=== PATIENT | female | born 1960 | race Two or more races ===

== ENCOUNTER 2025-02-24 06:06 | Inpatient (IN) | payer MEDICAID ==
[~2025-02-24] VITALS: Ht 160 cm; Wt 82.8 kg
[~2025-02-24 06:06] MED LIST: ASPI1TAB20 PO; CHOL200064 PO; CLON0.1T PO; CYCL-837 PO; ENAL1TAB48 PO; HYDR25TA5 PO; METF-372 PO; MORP30TA PO; NALO1TAB4 PO; OMEP20TA PO; SIMV10TA20 PO
[2025-02-24] MEDS: CELECOXIB 100 MG CAP ONE (06:35)
[2025-02-24] MEDS: PREGABALIN CAPSULE 75 MG CAP ONE (06:35)
[2025-02-24] MEDS: ACETAMINOPHEN IV 100 ML IV ONE (06:36)
[2025-02-24] MEDS: ceFAZolin 2 GM/D5W50ml 50 ML IV ONE (06:36)
[2025-02-24] MEDS: BUPIVACAINE HCL 50 ML ONE (06:45)
[2025-02-24] MEDS ORDERED: ONDANSETRON HCL 4 MG/2 ML VIAL ONE (06:52)
[2025-02-24] MEDS: VANCOMYCIN HCL 1000 MG VL ONE (06:52)
[2025-02-24] MEDS: TRANEXAMIC ACID 20 ML ONE (06:52)
[2025-02-24] MEDS: BUPIVACAINE 0.25% INJ 50ML VIAL ONE ×2 (06:52→08:02)
[2025-02-24] MEDS ORDERED: GLYCOPYRROLATE 0.2 MG/ML 1ML VIAL ONE (06:52)
[2025-02-24] MEDS ORDERED: LIDOCAINE 1% INJ PF 5ML AMP ONE ×2 (06:52→07:38)
[2025-02-24] MEDS ORDERED: PROPOFOL 10 MG/ML 20 ML IV ONE ×2 (06:52→08:15)
[2025-02-24] MEDS: CEFEPIME 1GM/50ML 50 ML IV ONE (06:53)
[2025-02-24] MEDS ORDERED: MORPHINE SULF PF 5 MG/10 ML VIAL ONE (06:54)
[2025-02-24] MEDS ORDERED: KETOROLAC TROMETH 30 MG/ML 1ML VIAL ONE (06:54)
[2025-02-24] MEDS ORDERED: HYDROmorphone HCL 2 MG/ML VL/or syr IV PRN ×2 (07:00→09:00)
[2025-02-24] MEDS ORDERED: NITROGLYCERIN 0.4 MG SL TAB SL PRN (07:00)
[2025-02-24] MEDS ORDERED: ONDANSETRON HCL 4 MG/2 ML VIAL IV PRN ×2 (07:00→09:00)
[2025-02-24] MEDS ORDERED: MORPHINE SULFATE INJ 2 MG/ml SYRG IV PRN (07:00)
[2025-02-24] MEDS ORDERED: DEXTROSE (50%) 50ML SYRG IV PRN (07:00)
[2025-02-24] MEDS: CELECOXIB 100 MG CAP PO ONE (07:05)
[2025-02-24] MEDS: PREGABALIN CAPSULE 75 MG CAP PO ONE (07:05)
[2025-02-24] MEDS: ACETAMINOPHEN IV 1000 MG/100ML (10MG/ML) IV ONE (07:05)
[2025-02-24] MEDS ORDERED: BUPIVACAINE/DEXTROSE MPF 0.75% 2 ML AMP IT ONE (07:10)
[2025-02-24] MEDS: ceFAZolin 1GM/50ML 50 ML IV ONE (07:30)
[2025-02-24] MEDS ORDERED: LIDOCAINE HCL 2% TOP JELLY 5ML TOP ONE (07:35)
[2025-02-24] MEDS: KETOROLAC TROMETH 30 MG/ML 1ML VIAL ONE (08:02)
[2025-02-24] MEDS: MORPHINE SULF PF 5 MG/10 ML VIAL IV ONE (08:02)
[2025-02-24 08:36] VITALS: PULSE 73; RESP 19; O2SAT 100
[2025-02-24] MEDS ORDERED: fentaNYL CITRATE 100 MCG/2 ML VL IV PRN (09:00)
[2025-02-24] MEDS ORDERED: hydrALAZINE HCL 20 MG/ML VL IV PRN (09:00)
[2025-02-24] MEDS ORDERED: FLUMAZENIL 0.1 MG/ML INJ 10ML MDV IV PRN (09:00)
[2025-02-24] MEDS ORDERED: NALOXONE HCL 0.4 MG/ML VIAL IV PRN (09:00)
[2025-02-24] MEDS: ENALAPRIL MALEATE 10 MG TAB PO SCH (10:00)
[2025-02-24] MEDS ORDERED: hydroCHLOROthiazide 25 MG TAB PO SCH (10:00)
--- NOTE | 2025-02-24 10:33 | DVH ---
CLINICAL INDICATION: sp Left TKA TECHNIQUE: 2 radiographic views of the left knee were obtained. Comparison: XR KNEE LIMITED RT on DOS: 06/04/18 FINDINGS/IMPRESSION: There is no evidence of acute fracture or dislocation. Postsurgical changes from left knee arthroplasty.
[2025-02-24] MEDS: InsuLIN REG 1unit/0.01ml Soln (100units/ml) SC SCH ×2 (11:30→21:51)
[2025-02-24 13:00] VITALS: BP 100/78; PULSE 106; RESP 19; TEMP 97.8; O2SAT 99
[2025-02-24] MEDS ORDERED: ALBUTEROL SULF 2.5 MG/0.5ML(0.5%) NEB SOLN NEB PRN (13:00)
--- NOTE | 2025-02-24 13:03 | DVHINCON2 ---
Date Seen: Feb 24, [address] MARTÍNEZ Allergies: Coded Allergies: NO KNOWN ALLERGIES (Unverified , 02/20/25) Home Meds Reported Medications Morphine Sulfate (Morphine Sulfate) 30 Mg Tab, 30 MG PO, TAB 02/20/25 Omeprazole (Gnp Omeprazole) 20 Mg Tab, 20 MG PO, TAB 02/20/25 Metformin Hydrochloride (Metformin Hcl) 1,000 Mg Tab, 1000 MG PO BID, TAB 02/20/25 Cyclobenzaprine Hcl (Cyclobenzaprine Hcl) 5 Mg Tab, 10 MG PO, TAB 02/20/25 Hctz (Hydrochlorothiazide) 25 Mg Tab, 25 MG PO DAILY, TAB 02/20/25 Aspirin (Aspir-81) 81 Mg Tab, 81 MG PO DAILY, TAB 02/20/25 Enalapril Maleate (Enalapril Maleate) 20 Mg Tab, 20 MG PO DAILY, TAB 02/20/25 Cholecalciferol (D3 2000) 2,000 Unit Cap, 2000 UNIT PO DAILY, CAP 02/20/25 Simvastatin (Simvastatin) 10 Mg Tab, 5 MG PO, TAB 02/20/25 Naloxegol Oxalate (Movantik) 25 Mg Tab, 25 MG PO, TAB 02/20/25 Clonidine Hydrochloride (Clonidine Hcl) 0.1 Mg Tab, 0.1 MG PO TID, TAB 02/20/25 Current Medications Current Medications Medications (Trade) Dose Ordered Sig/Bridget Route PRN Reason Start Time Stop Time Status Last Admin Clonidine HCl (Catapres Tablet) 0.1 mg TID PO 02/24/25 14:00 Hydrochlorothiazide (hydroCHLOROthiazide TABLET) 25 mg DAILY PO 02/24/25 10:00 Enalapril Maleate (Vasotec Tablet) 20 mg DAILY PO 02/24/25 10:00 Pravastatin Sodium (Pravachol Tablet) 20 mg HS PO 02/24/25 22:00 Pantoprazole Sodium (Protonix Tablet) 40 mg BID@0600,1700 PO 02/24/25 17:00 Oxycodone HCl (OxyCONTIN ER Tablet) 20 mg Q12HR PO 02/24/25 10:00 Lactated Ringer's 1,000 ml @ 100 mls/hr Q10H IV 02/24/25 07:00 Cefazolin Sodium 50 ml @ 50 mls/hr Q6H IV 02/24/25 12:00 02/25/25 00:59 Hydromorphone HCl (Dilaudid Injection) 1 mg Q2HP PRN IV SEVERE PAIN (7-10 PAIN SCALE) 02/24/25 07:00 Ondansetron HCl (Zofran) 4 mg Q6HP PRN IV NAUSEA / VOMITING 02/24/25 07:00 Docusate Sodium (Colace Capsule) 100 mg Q12HR PO 02/24/25 10:00 Nitroglycerin (Ntrostat Sublingual) 0.4 mg Q5MINP PRN SL FOR CHEST PAIN 02/24/25 07:00 Morphine Sulfate 2 mg Q30M PRN IV FOR CHEST PAIN 02/24/25 07:00 Diagnostic Test (Pha) (Accu-Chek Comfort Curve T) 1 strip ACHS 02/24/25 07:00 Insulin Human Regular (InsuLIN R) HS SC 02/24/25 22:00 Insulin Human Regular (InsuLIN R) AC SC 02/24/25 07:00 02/24/25 12:08 Dextrose 50 ml UD PRN IV Blood Sugar LESS THAN 60 02/24/25 07:00 Aspirin (Ecotrin Enteric Coated Tablet) 81 mg BID PO 02/25/25 10:00 Cefepime HCl 50 ml @ 12.5 mls/hr DAILY IV 02/24/25 10:00 UNV Ondansetron HCl (Zofran) 4 mg ONCE PRN IV NAUSEA / VOMITING 02/24/25 09:00 02/24/25 09:07 DC Naloxone HCl (Narcan) 0.4 mg Q10M PRN IV NARCOTIC REVERSAL 02/24/25 09:00 02/24/25 09:21 DC Flumazenil (Romazicon Injection) 0.2 mg ONCE PRN IV BENZODIAZEPINE REVERSAL 02/24/25 09:00 02/24/25 09:07 DC Hydralazine HCl (Apresoline Injection) 5 mg Q10M PRN IV SBP>160 02/24/25 09:00 02/24/25 09:51 DC Ephedrine Sulfate (ePHEDrine SULFATE) 10 mg Q10M PRN IV SBP LESS THAN 90 02/24/25 09:00 02/24/25 09:41 DC Fentanyl Citrate 25 mcg Q1HP PRN IV BREAKTHROUGH PAIN (7-10) 02/24/25 09:00 02/24/25 09:07 DC Hydromorphone HCl (Dilaudid Injection) 0.5 mg Q10M PRN IV SEVERE PAIN (7-10 PAIN SCALE) 02/24/25 09:00 02/24/25 09:41 DC Vital Signs Vital Signs Date Time Temp Pulse Resp B/P (MAP) Pulse Ox O2 Delivery O2 Flow Rate FiO2 02/24/25 10:20 59 16 149/73 (98) 54 02/24/25 08:36 Mask 7.0 02/24/25 08:36 100 02/24/25 08:36 97.5 97.5 Labs/Diagnostic Data Labs Test 02/24/25 11:50 Range/Units POC Glucose 175 H 70-106 mg/dl Assessment SEE DICTATED NOTE Plan discussed with: Patient Date of Service: Feb 24, 2025 Billing Provider: NISA ROSS MD Common Visit Codes: 82120-PPBUJDD INP/OBS CARE (HIGH) Secondary Visit Codes: 60237-IBOFH CHNG SMOKING >10MIN, 47254-EOXIREHW CARE PLAN 30 MINUTES NISA ROSS MD Feb 24, 2025 13:03
[2025-02-24] MEDS: MORPHINE SULF 30 mg ER tab PO ONE (13:27)
[2025-02-24] MEDS: DOCUSATE SOD 100 MG CAP PO SCH (13:27)
[2025-02-24] MEDS: ACCU-CHEK COMFORT CURVE STRIP VI SCH (13:29)
[2025-02-24 13:30] VITALS: BP 148/90; PULSE 57; RESP 14; TEMP 97.5; O2SAT 96
[2025-02-24] MEDS: LACTATED RINGER'S 1,000 ML IV SCH (13:30)
--- NOTE | 2025-02-24 13:36 | DVHINCON2 ---
INTERNAL MEDICINE CONSULT HISTORY OF PRESENT ILLNESS: The patient is a 64-year-old lady who was admitted after she underwent surgery on the left knee for DJD of the knee. The patient denies any significant pain. No chest pain. No shortness of breath. No nausea or vomiting. REVIEW OF SYSTEMS: Review of rest systems otherwise currently negative. PAST MEDICAL HISTORY: Significant for diabetes, hypertension, COPD, hyperlipidemia, chronic pain, and GERD. MEDICATIONS: She takes aspirin, clonidine, hydrochlorothiazide, metformin, morphine, omeprazole, simvastatin. ALLERGIES: No known drug allergies. SOCIAL HISTORY: Smokes cigarettes. Denies alcohol. Has a caregiver at home. FAMILY HISTORY: Negative. PHYSICAL EXAMINATION: GENERAL: The patient is awake and alert. VITAL SIGNS: Temperature of 97.5, pulse 65 per minute, blood pressure 115/58. SHEENT: Unremarkable. There is no JVD. No pedal edema. LUNGS: Equal bilaterally. No added sounds. CARDIOVASCULAR: S1, S2 is regular. No murmurs. ABDOMEN: Soft. There is no organomegaly. NEUROLOGIC: Nonfocal. MUSCULOSKELETAL: The left knee is currently in a dressing. ASSESSMENT AND PLAN: * Hypertension for which the patient will resume her home medications. * Diabetes mellitus. She will be placed on sliding scale insulin. * Obesity. * Tobacco abuse. The patient has been advised to quit smoking and nicotine patch will be placed. Time spent was 11 minutes. * Hyperlipidemia. * GERD. * Status post left knee surgery for DJD of the knee for which she will be placed on pain medication and receive physical therapy. * Advance care planning. The patient is a full code-Time spent was 17 minutes. MD HUE Galvan/CHIDI TID: [id number] RECEIPT: [id number] [facility]
[2025-02-24] MEDS: NICOTINE 14 MG/24HR TOPICAL PATCH TD ONE (13:57)
[2025-02-24] MEDS: ceFAZolin 1GM/50ML 50 ML IV SCH (13:57)
[2025-02-24] MEDS: HYDROmorphone HCL 2 MG/ML VL/or syr IV PRN (15:59)
[2025-02-24 17:00] VITALS: BP 144/72; PULSE 69; RESP 17; TEMP 97.7; O2SAT 99
[2025-02-24] MEDS: PANTOPRAZOLE 40 MG TAB PO SCH (17:18)
[2025-02-24 20:00] VITALS: PULSE 73
[2025-02-24 21:00] VITALS: BP 140/85; PULSE 67; RESP 17; RESP 18; TEMP 97.6; TEMP 97.7; O2SAT 96
[2025-02-24] MEDS: PRAVASTATIN SODIUM 20 MG TAB PO SCH (21:49)
[2025-02-25 01:00] VITALS: BP 129/82; PULSE 71; RESP 18; TEMP 97.7; O2SAT 93
[2025-02-25 05:00] VITALS: BP 133/75; PULSE 62; RESP 18; TEMP 97.6; O2SAT 91
[2025-02-25 07:25] LABS: Hematocrit 34.2 % (36.0-46.0); Hemoglobin 11.3 g/dL (12.2-16.2); Mean Corpuscular Hemoglobin 28.5 pg (28.0-32.0); Mean Corpuscular Volume 86.2 fL (80.0-100.0); Nucleated Red Blood Cells % 0.1 %
[2025-02-25 07:45] LABS: Alanine Aminotransferase 11 U/L (7-40); Albumin 4.0 g/dL (3.2-4.8); Alkaline Phosphatase 52 U/L (46-116); Anion Gap 7 (5-15); BUN/Creatinine Ratio 20.5 (10.0-20.0); Blood Urea Nitrogen 17 mg/dL (9-23); Calcium 9.1 mg/dL (8.7-10.4); Carbon Dioxide 28 mmol/L (20-31); Chloride 105 mmol/L (98-107); Potassium 3.8 mmol/L (3.5-5.1); Sodium 140 mmol/L (136-145); Total Protein 6.6 g/dL (5.7-8.2)
[2025-02-25 07:46] LABS: Bilirubin, Total 0.4 mg/dL (0.2-1.0); Glucose 177 mg/dL (74-106)
[2025-02-25 08:38] VITALS: BP 134/76; PULSE 79; RESP 20; TEMP 97.9; O2SAT 98
[2025-02-25] MEDS: CEFEPIME 1GM/50ML 50 ML IV SCH (09:36)
[2025-02-25] MEDS: ASPirin-EC 81 mg tab PO SCH (09:36)
[2025-02-25] MEDS: NICOTINE 14 MG/24HR TOPICAL PATCH TD SCH (09:37)
--- NOTE | 2025-02-25 11:32 | DVHPN2 ---
Progress Note Progress Note Surgery: Left total knee arthroplasty DOS: T-1 S: Reports pain currently 2-3/10. Reports no acute events over night. Denies numbness/tingling. Denies CP/SOB/palpitations. Denies F/C O: Pt asleep, resting comfortably in bed. Examination of the Left knee reveals surgical dressing CDI. Pt is able to dorsiflex and plantar flex toes and ankle (Gastroc, ant tib, peroneals). SILT over the sural, saphenous, tibial, deep and superficial peroneal nerve, medial and lateral plantar nerve distribution patterns. 2+ DP, BCR, euthermic A/P: S/p left total knee arthroplasty. The patient is doing well. Discussed with patient the importance of keeping knee straight when lying in bed and when not doing active knee flexion exercises. - Pt should continue to work with physical therapy for mobilization. Has seen PT this morning ans doing well. -Ambulation: WBAT LLE with use of FWW for balance and assistance. -DVT proph: per protocol, SCD, LEV davidson -Antibiotics: Abx to be completed per protocol -Pain Management: PO medications per medicine team. The patient will be ready to be discharged once pain is controlled and cleared by PT Plan discussed with: Patient Visit Coding Surgery Date of Service if different f: Feb 25, 2025 Billing Provider: KARMA FRIED Surgery Visit Codes: 81730 - INP CONSULT <55 MIN KARMA FRIED Feb 25, 2025 11:32
--- NOTE | 2025-02-25 12:06 | DVHDS2 ---
Discharge Summary Date of Admission Feb 24, 2025 at 06:58 Date of Discharge: Feb 25, 2025 Labs/Diagnostic Data: Laboratory Results Test 02/25/25 06:46 02/25/25 05:57 White Blood Count 9.8 10^3/uL (4.4-10.8) Red Blood Count 3.96 10^6/uL (4.0-5.20) Hemoglobin 11.3 g/dL (12.2-16.2) Hematocrit 34.2 % (36.0-46.0) Mean Corpuscular Volume 86.2 fL (80.0-100.0) Mean Corpuscular Hemoglobin 28.5 pg (28.0-32.0) Mean Corpuscular Hemoglobin Concent 33.1 g/dL (32.0-36.0) Red Cell Distribution Width 14.7 % (11.8-14.3) Platelet Count 267 10^3/uL (140-450) Mean Platelet Volume 7.2 fL (6.9-10.8) Neutrophils (%) (Auto) 84.3 % (37.0-80.0) Lymphocytes (%) (Auto) 9.3 % (10.0-50.0) Monocytes (%) (Auto) 6.3 % (0.0-12.0) Eosinophils (%) (Auto) 0.0 % (0.0-7.0) Basophils (%) (Auto) 0.1 % (0.0-2.0) Neutrophils # (Auto) 8.3 10 ^3/uL (1.6-8.6) Lymphocytes # (Auto) 0.9 10 ^3/uL (0.4-5.4) Monocytes # (Auto) 0.6 10 ^3/uL (0-1.3) Eosinophils # (Auto) 0 10 ^3/uL (0-0.8) Basophils # (Auto) 0 10 ^3/uL (0-0.2) Nucleated Red Blood Cells 0.1 % Sodium Level 140 mmol/L (136-145) Potassium Level 3.8 mmol/L (3.5-5.1) Chloride Level 105 mmol/L (98-107) Carbon Dioxide Level 28 mmol/L (20-31) Anion Gap 7 (5-15) Blood Urea Nitrogen 17 mg/dL (9-23) Creatinine 0.83 mg/dL (0.550-1.02) Glomerular Filtration Rate Calc 80 mL/min (>90) BUN/Creatinine Ratio 20.5 (10.0-20.0) Serum Glucose 177 mg/dL (74-106) Calcium Level 9.1 mg/dL (8.7-10.4) Total Bilirubin 0.4 mg/dL (0.2-1.0) Aspartate Amino Transferase (AST) 14 U/L (13-40) Alanine Aminotransferase (ALT) 11 U/L (7-40) Alkaline Phosphatase 52 U/L (46-116) Total Protein 6.6 g/dL (5.7-8.2) Albumin 4.0 g/dL (3.2-4.8) Thyroid Stimulating Hormone (TSH) 0.22 uIU/mL (0.55-4.78) POC Glucose 194 mg/dl (70-106) Other Laboratory Tests 02/25/25 06:46 Brief Hx & Hospital Course: see dictated note Condition at Discharge: Good Final Diagnosis/Problems List knee surgery Discharge Disposition: Home Discharge Instruct/Medications Diet: Consistent carbohydrate, Cardiac 2g Na,low cholest Activity: No Restrictions, As Tolerated Follow Up/Referral: fu with pcp/ortho Medications: resume home meds rest meds per ortho Scheduled Aspirin (Aspir-81), 81 MG PO DAILY, (Reported) Cholecalciferol (D3 2000), 2,000 UNIT PO DAILY, (Reported) Clonidine Hydrochloride (Clonidine Hcl), 0.1 MG PO TID, (Reported) Enalapril Maleate (Enalapril Maleate), 20 MG PO DAILY, (Reported) Hctz (Hydrochlorothiazide), 25 MG PO DAILY, (Reported) Metformin Hydrochloride (Metformin Hcl), 1,000 MG PO BID, (Reported) Miscellaneous Medications Cyclobenzaprine Hcl (Cyclobenzaprine Hcl), 10 MG PO, (Reported) Morphine Sulfate (Morphine Sulfate), 30 MG PO, (Reported) Naloxegol Oxalate (Movantik), 25 MG PO, (Reported) Omeprazole (Gnp Omeprazole), 20 MG PO, (Reported) Simvastatin (Simvastatin), 5 MG PO, (Reported) Discharge Statement: "Patient was advised to return to the ER or call 911 if any headaches, dizziness, shortness of breath, chest pain, abdominal pain, bleeding, fevers, or worsening of medical condition. Patient was counseled about treatment plan, medications, possible side effects, patientverbalized understanding. All questions were answered to the best of my ability. This discharge took greater then 30 minutes in planning, reviewing documentation, counseling the patient, and discussing with other team members." ASSESSMENT ASSESSMENT Assessment knee surgery Date of Service: Feb 25, 2025 Billing Provider: NISA ROSS MD Common Visit Codes: 53787-RFA/OBS DISCH DAY >30min NISA ROSS MD Feb 25, 2025 12:06
--- NOTE | 2025-02-25 12:38 | DVHDS ---
DATE OF DISCHARGE: 02/25/2025 HISTORY OF PRESENT ILLNESS: The patient is a 64-year-old lady who was admitted after she underwent surgery on the left knee for DJD of the knee. She has a history of diabetes, hypertension, COPD, hyperlipidemia, chronic pain and GERD. HOSPITAL COURSE: The patient did well postoperatively. The patient has been ambulating with physical therapy. Her pain is currently under control. She will be discharged home to resume her home medications as well as to be on medications as per Orthopedics and have home physical therapy. She will follow up with her primary care and Orthopedics. FINAL DIAGNOSES: * Hypertension. * Diabetes mellitus. * Obesity. * Tobacco abuse. * Hyperlipidemia. * Gastroesophageal reflux disease. * Status post left knee surgery for DJD of the knee. Time spent in discharge planning and review of plan with the patient and nursing was 38 minutes. MD HUE Galvan/PILO TID: [id number] RECEIPT: [id number]
[2025-02-25 13:53] VITALS: BP 134/76; TEMP 36.6
[2025-02-25 14:15] VITALS: BP 130/75; PULSE 69; RESP 18; TEMP 98; O2SAT 96
--- NOTE | 2025-02-27 18:25 | DVHOP2 ---
Operative Report - 2 Report Details Date: 02/24/2025 Preop Diagnosis: Left knee osteoarthritis Postop Diagnosis: as above Surgeon: Nick Parker MD Banquet Cook: Tono GARCIA Anesthesiologist: Anesthesia: Regional Implant: See implant log Consent: The patient was informed of the risks and benefits of the procedure. These include but are not limited to complications of anesthesia, postoperative infection, incomplete relief of symptoms, recurrence of symptoms, damage to blood vessels, nerves and tendons, deep venous thrombosis, pulmonary embolism and possible need for repeat surgery in the future. Estimated Blood Loss: 50 cc Name of Procedure Performed Left total knee arthroplasty using computer navigation Procedure Details Procedure Details: INDICATION: This patient has failed non-operative treatments for knee arthritis and is now indicated for a total knee replacement. Preoperatively in the waiting area as well as in the office, I had a long discussion with the patient regarding the plan, the expected outcome, the risks, benefits, and alternatives of surgery. The risks include, but are not limited to, infection (which may require future surgery and removal of implants) , bleeding (which may require a transfusion), damage to nerves, arteries, veins, tendons, muscles and other adjacent structures. Also discussed the possibilities of intraoperative fractures, implant loosening, heterotopic bone formation, and revision for variety of reasons, and medical complications etc. This was discussed at length and consent has been obtained. DESCRIPTION OF PROCEDURE: In the preoperative holding area, the consent was reviewed and the appropriate extremity was verified by the patient and marked with my initials. The patient was then transferred to the operating theatre. Appropriate anesthesia was induced. All bony prominences were well padded. A desire e out was performed verifying the side and site of surgery according to standard protocol. Preoperative antibiotics were given 10 minutes prior to tourniquet inflation. Tranexamic acid was given. A well padded thigh tourniquet was applied. The extremity was then prepped and draped in the usual sterile fashion. The extremity was exsanguinated and the tourniquet was inflated. We then made a mid-line incision, which we continued to the underlying capsular tissue. We performed a medial parapatellar arthrotomy. We periosteally exposed the proximal tibia, excised the anterior fat pad and synovium from the distal aspect of the femur. We then subluxed the patella and brought the knee up into flexion. The lateral meniscus, ACL were released. We used the appropriate guide with attached computer navigation to secure the distal femoral cutting block to the femur with pins and completed the distal femoral cut in 0 degrees to the mechanical axis with an oscillating saw. We removed the distal femoral cutting block and turned our attention to the tibia. We used the extramedullary tibial alignment guide with computer navigation to secure the proximal tibial cutting block to the tibia with pins, setting it for a 2 mm cut from the more involved side, and completed the proximal tibial cut. We then used the spacer block and alignment nirav to check the varus-valgus angle of our cuts and the extension gap. The knee was then balanced in extension to varus/valgus stress. We marked our femoral anatomy, including [place]'s line and the epicondylar axis. Using that as a rotational guide, we used the sizing guide to size our femur properly, using a stylus to ensure there would be no notching. We then used the AP cutting guide to make our anterior and posterior cuts and chamfer cuts with an oscillating saw. We again checked the flexion and extension gaps and coronal balancing. Next, we sized our tibia and secured a baseplate with appropriate rotation with pins. We placed a trial femur in position and completed preparation of the notch with reamers and box osteotome and placed a trial notch in position. We used trials to choose our liner size and then placed the liner in place and reduced the knee. We used an oscillating saw to resurface the patella, and used a guide to choose the button size and completed patella preparation with the drill. We then placed a trial button in place. At this point, we checked our seven parameters: 1) Limb alignment 2) Extension 3) Flexion against gravity 4) Flexion stability 5) Varus-valgus balancing 6) Component rotation 7) Patella tracking We were satisfied with these and removed all trials with the exception of the baseplate. We completed preparation of the tibia with the appropriate reamer and keel impactor and then removed the baseplate. We placed a bone plug in the distal femur and then irrigated and dried all bony surfaces and injected our pain cocktail. We impacted our tibial and patellar components into position. I then cemented femur component as there was softening of her bone and I did not want to rely on only porous fixation. We impacted our liner and reduced the knee and held it with axial loading. We released the tourniquet and achieved hemostasis where necessary. A dilute betadine solution (17.5mL in 500mL saline) was used to wash the joint and left to sit for 3 minutes. This was then irrigated out with copious amounts of pulse lavage. We sprinkled 1g vancomycin powder below the fascia and 1g above the fascia. We copiously irrigated the knee. We re-checked our seven parameters. We closed our capsular incision with a PDS style suture. We irrigated further. We closed the subcutaneous tissue with Vicryl suture and re-approximated the skin with pradeep. We verified all lower extremity compartments were soft and compressible and that we had intact distal pulses. We wrapped the extremity in sterile Webril and leida bandage. The patient was transferred to the recovery room in stable condition. Condition Good Disposition Home NICK PARKER MD Feb 27, 2025 18:25
== END 2025-02-25 14:34 | disposition home or self-care (01) | DRG 326 ==
LOC: SUR 06:06 → OVERFLOW 06:58 → WEST WING 13:21
PROVIDERS: ADMIT Internal Medicine; ATTEND Internal Medicine
PROC: 8E0YXBZ Computer Assisted Procedure of Lower Extremity (ICD-10-PCS; 2025-02-24)
PROC: 0SRD0J9 Replacement of Left Knee Joint with Synthetic Substitute, Cemented, Open Approach (ICD-10-PCS; principal; 2025-02-24 07:13)
DX: M17.12 Unilateral primary osteoarthritis, left knee (principal); E11.9 Type 2 diabetes mellitus without complications; E78.5 Hyperlipidemia, unspecified; E66.9 Obesity, unspecified; K21.9 Gastro-esophageal reflux disease without esophagitis; J44.9 Chronic obstructive pulmonary disease, unspecified; G89.29 Other chronic pain; I10 Essential (primary) hypertension; F17.210 Nicotine dependence, cigarettes, uncomplicated; Z79.84 Long term (current) use of oral hypoglycemic drugs; Z79.899 Other long term (current) drug therapy; Z79.82 Long term (current) use of aspirin; Z68.31 Body mass index [BMI] 31.0-31.9, adult
CPT/HCPCS: 36415; 73560; 80053; 82565; 82962; 84443; 85025; 86850; 86900; 86901; 97110; 97116; 97163; 97530; G0378; J0131; J0169; J1100; J1815; J1885; J2405; J2704; J3490